=== PATIENT | female | born 1990 | race Caucasian/White ===

== ENCOUNTER → 2018-09-25 | Outpatient (CLI) | payer BC ==
[~2018-09-25] MED LIST: IBUP800 PO; Omeprazole20 M1 PO; TUMS500 MG PO; Verotin-Gr Cap1 EACH PO
== END | disposition home or self-care (01) ==
LOC: LAB 09:31 → LAB SHORT 09:31
DX: Z34.80 Encounter for supervision of other normal pregnancy, unspecified trimester (principal)
CPT/HCPCS: 87081; 87653

== ENCOUNTER 2018-10-23 06:04 | Inpatient (IN) | payer OTHER, BC ==
[~2018-10-23] VITALS: Ht 167.6 cm; Wt 88.6 kg
[2018-10-23 06:30] LABS: Source, Urine Clean Catch
[2018-10-23 06:32] LABS: Bilirubin, Urine Neg (Neg); Blood, Urine 1+ (Neg); Glucose Qualitative, Urine Neg (Neg); Ketones, Urine Neg (Neg); Leukocyte Esterase, Urine Neg (Neg); Nitrite, Urine Neg (Neg); Protein, Urine Neg (Neg); Specific Gravity, Urine 1.025 (1.003-1.022); Urobilinogen, Urine NORM (Normal)
[2018-10-23 06:33] LABS: Appearance, Urine Clear (Clear); Color, Urine Yellow (P-Yellow)
[2018-10-23 06:39] LABS: Bacteria Mod /hpf; Red Blood Cells, Urine 0-2 /hpf (0-2); Squamous Epithelial Cells Many /hpf (Few); White Blood Cells, Urine Not Seen /hpf (0-5)
[2018-10-23 07:38] LABS: BASOPHILS ABSOLUTE AUTO 0.03 K/mm3 (0.00-0.23); BASOPHILS PERCENT AUTO 0 % (0-2); EOSINOPHILS ABSOLUTE AUTO 0.02 K/mm3 (0.00-0.68); EOSINOPHILS PERCENT AUTO 0 % (0-6); Hematocrit 33.8 % (33.0-51.0); Hemoglobin 10.6 g/dL (11.5-16.0); IMMATURE GRAN ABSOLUTE AUTO 0.06 K/mm3 (0.00-0.10); IMMATURE GRAN PERCENT AUTO 1 % (0-1); LYMPHOCYTES ABSOLUTE AUTO 1.75 K/mm3 (0.84-5.20); LYMPHOCYTES PERCENT AUTO 15 % (21-46); MONOCYTES ABSOLUTE AUTO 0.86 K/mm3 (0.16-1.47); MONOCYTES PERCENT AUTO 8 % (4-13); Mean Corpuscular HGB 25.2 pg (26.0-34.0); Mean Corpuscular HGB Conc 31.4 g/dL (31.5-36.5); Mean Corpuscular Volume 81 fL (80-100); Mean Platelet Volume 11.5 fL (9.1-12.4); NEUTROPHILS ABSOLUTE AUTO 8.71 K/mm3 (1.96-9.15); NEUTROPHILS PERCENT AUTO 76 % (41-73); Platelet Count 190 K/mm3 (150-400); RDW Coefficient Variation 14.6 % (11.7-14.2); RDW Standard Deviation 42.4 fL (35.1-46.3); White Blood Cell Count 11.43 K/mm3 (4.00-11.30)
--- NOTE | 2018-10-23 16:29 | NUR ---
SNS AND SHIELD BROUGHT IN TO PT'S ROOM. PT EDUCATED ON HOW TO USE AND CLEAN. NB APPEARS TO BE DOING WELL WITH THE SETUP.
--- NOTE | 2018-10-23 21:31 | NUR ---
ASSIST MOM HAS SHORT SHANKED NIPPLES THAT ARE RETRACTED AT BASSES AND HAS BEEN HAVING DIFFICULTY LATCHING. BABY SLEEPING AT THIS TIME AND NOT INTRESTED IN . DEMONSTRATED CHEST TO CHEST LAID BACK POSTION. ED DONE. MOM ENCOURAGED TO CALL FOR ASSIST WHEN BABY WAKES. DEMONSTRAED SHIELD WHICH WAS IN THE ROOM SHE MAY NEED IT WHEN HER MILK COMES IN AND BREASTS GET HARDER.NEW BEGINNINGS BOOK AND BOOK DISCUSSED.
[2018-10-24 05:47] LABS: Hematocrit 28.1 % (33.0-51.0); Hemoglobin 8.7 g/dL (11.5-16.0); Mean Corpuscular HGB 25.1 pg (26.0-34.0); Mean Corpuscular Volume 81 fL (80-100); Mean Platelet Volume 11.4 fL (9.1-12.4); Platelet Count 137 K/mm3 (150-400); RDW Coefficient Variation 14.7 % (11.7-14.2); RDW Standard Deviation 42.9 fL (35.1-46.3); Red Blood Cell Count 3.46 M/mm3 (3.80-5.20); White Blood Cell Count 9.82 K/mm3 (4.00-11.30)
--- NOTE | 2018-10-24 16:53 | NUR ---
CONSULT. BABY IS NOW 24 HOURS OLD AND STARTING TO SELF WAKEN SOME FOR FEEDINGS. NIPPLES ARE VERY SHORT SHANKED, MINIMAL FIRMING WITH STIMULI. ONLY BF ABOUT 1 WEEK WITH FIRST CHILD AND DOES NOT REMEMBER GETTING ENGORGED AND HE DID NOT LATCH WELL. THIS BABY DOES COORDINATE SUCK ON A FINGER AFTER THE POSTERIOR TONGUE IS PRESSED DOWN. INSTRUCT/DEMO HOW TO DO TUG OF WAR WITH BABY TO HELP COORDINATE SUCK AND IMPROVE SUCTION FOR LATCHING. BABY IS NOT TRIGGERING TO TRY AND SUCK WHEN PRESENTED WITH NIPPLE ON HIS LIP. INITIALLY CRIES WITH SHIELD, THEN DID LATCH AND BEGIN SUCKLING, NARROW LATCH AND RESISTANT TO WIDENING. LEFT A COMPRESSION STRIP. INSTRUCT/DEMO USE OF SHIELD, WIDENING HIS LATCH ON MARIA A SHIELD, AND CLEANING SHIELD. INSTRUCT IN CHANGES TO EXPECT DURING THE FIRST WEEK WITH BABY AND WITH FEEDINGS AND REFERRED TO BF BROCHURE AND PAGE 18 OF BF BOOKLET FOR PHOTOS AND INFORMATION. QUESTIONS ANSWERED. INSTRUCT/DEMO SELF EBM AND BARELY A DROP WAS EXPRESSED. HISTORY OF LOW PRODUCTION. INSTRUCT TO TRY COORDINATING HIS SUCK BEFORE PUTTING TO BREAST, RATHER THAN CONTINUEING TO USE FORMULA VIA SNS TO STIMULATE HIS SUCKING REFLEX. MOM IS LOVING WITH BABY.
--- NOTE | 2018-10-25 00:34 | NUR ---
GAVE REPORT TO SMOOTH ALANIZ. SMOOTH TO ASSUME PATIENT CARE AT THIS TIME.
--- NOTE | 2018-10-25 07:30 | NUR ---
BREAKFAST TAKEN IN ROOM, PT SLEEPING, NB AT NURSES STATION SLEEPING.
--- NOTE | 2018-10-25 09:30 | NUR ---
IN TO ROOM WITH NB, MOM AWAKE NOW. WILL DO ASSESMENT & THEN ATTEMPT FEEDING. MOM STATES FEEDING HAS BEEN HARD, WILL HAVE LACATION IN ROOM THIS AM AND THEN RN. MOM HAS A DC ORDER. RX FOR COLACE AND IRON GIVEN.
--- NOTE | 2018-10-25 10:03 | NUR ---
CONSULT FOLLOW UP. BABY IS STILL NOT COORDINATING SUCK VERY WELL AND IS PUTTING MINIMAL EFFORT INTO SUCKING. JAUNDICE IS INCREASING AND WT LOSS IS 9%. INSTRUCT TO MOM THE IMPORTANCE OF INCREASING THE INTAKE FOR BABY, EVERY FEEDING. MOM IS ABLE TO SELF EBM TODAY, SMALL DROPS, BETTER THAN YESTERDAY. SHE IS NOT VERY ASSERTIVE WITH PUTTING BABY TO BREAST, DEMO HOW TO STIMULATE BABY MORE TO HELP HER WAKEN AND START SUCKING, AND BABY IS TO EAT Q2-3 HOURS NOW, WAKE HER FOR FEEDINGS IF SHE DOESN'T WAKEN HERSELF. NOW AT 4 HOURS SINCE LAST FEEDING. MOM ABLE TO APPLY SHIELD WELL, POSITIONS BABY WITH HEAD A LITTLE FORWARD, REINSTRUCT HAND POSITION TO HELP BABY WIDEN LATCH BETTER WITH CHIN MORE TO BREAST. 20CC OF FORMULA VIA SYRINGE/FEEDING TUBE INTO SHIELD, NEEDED TO INJECT SUPPLEMENT BABY WAS NOT ACTIVELY SUCKING, WOULD SUCK ENOUGH TO SWALLOW. SHE WAS ASLEEP WHEN 20CC WERE DONE. DID NOT MOVE BREAST TISSUE WITH SUCK STRENGTH. MOM PLANS HOME TODAY, TO START PUMPING FOR 10-15 MINUTES AFTER EACH BF SESSION TO BRING SUPPLY IN, GIVE SUPPLEMENT OF 20CC QF TODAY, INCREASE TO 30CC QF TOMORROW IF MILK NOT IN YET. IF MILK IN AND SHE IS PUMPING ENOUGH, GIVE EBM RATHER THAN FORMULA IN SUPPLEMENT. WHEN SUCKING INCREASES THEN WILL START DECREASING SUPPLEMENT. IF MILK DOES NOT COME IN WELL, INCREASE AMOUNT OF SUPPLEMENT BY 10CC/DAY, EACH DAY. MOM AND FRIEND BOTH LISTENING AND AGREE. HAS F/U SCHEDULED IN CLINIC IN 2 DAYS.
[2018-10-25] MEDS ORDERED: DOCU100 PO (15:38)
--- NOTE | 2018-10-25 15:49 | NUR ---
BANDS MATCHED, ALL DC TEACHING DONE, ALL QUESTIONS ANSWERED. GAVE MOM 2 30CC SYRINGES AND ANOTHER FEEDING TUBE FOR SUPPLEMENTING AT THE BR. INSTRUCTED TO CONT TO SUPPLEMENT UNTIL SUNDAY WHEN SEEN BY RN.
--- NOTE | 2018-10-25 16:30 | NUR ---
DC HOME WITH NB.
== END 2018-10-25 16:24 | disposition home or self-care (01) | DRG 807 ==
LOC: OBS 06:04 → BC 06:10 → OBS 06:46 → BC 06:48
PROVIDERS: Obstetrics & Gynecology; ADMIT Advanced Practice Midwife
PROC: 10E0XZZ Delivery of Products of Conception, External Approach (ICD-10-PCS; principal; 2018-10-23)
PROC: 0HQ9XZZ Repair Perineum Skin, External Approach (ICD-10-PCS; 2018-10-23)
PROC: 10907ZC Drainage of Amniotic Fluid, Therapeutic from Products of Conception, Via Natural or Artificial Opening (ICD-10-PCS; 2018-10-23)
DX: O48.0 Post-term pregnancy (principal); Z37.0 Single live birth; O70.0 First degree perineal laceration during delivery; Z3A.40 40 weeks gestation of pregnancy
CPT/HCPCS: 36415; 81001; 85025; 85027; J1885; J2590; J3010; J7120

== ENCOUNTER → 2020-03-09 | Outpatient (CLI) | payer OTHER ==
[~2020-03-09] MED LIST changes: +DOCU100 PO
[2020-03-10 15:09] LABS: HPV 16 Negative (Negative); HPV 18 Negative (Negative); HPV OTHER HR TYPES Negative (Negative)
== END | disposition home or self-care (01) ==
LOC: LAB SHORT 15:14 → LAB 15:14
PROVIDERS: Advanced Practice Midwife
DX: Z12.4 Encounter for screening for malignant neoplasm of cervix (principal)
CPT/HCPCS: 87624; G0123

== ENCOUNTER 2021-12-19 01:08 | Emergency (ER) | payer OTHER ==
[~2021-12-19] VITALS: Ht 170.2 cm; Wt 83.0 kg
[~2021-12-19 01:08] MED LIST changes: +AMOCLA875 PO; +ETONOGESTREL-E1 EAC1 VAG; +IMIP10 PO; +IMITREX100 MG PO; +LEVOCETIRIZINE D5 MG PO; +OXYC10TA19 PO; +PRENATAL TABLE1 EAC2 PO; -Verotin-Gr Cap1 EACH PO; +ZOLOFT100 M7 PO
[2021-12-19 01:26] LABS: Source, Urine Clean Catch
[2021-12-19 01:28] LABS: Appearance, Urine Hazy (Clear); Bilirubin, Urine Neg (Neg); Blood, Urine 5+ (Neg); Color, Urine Yellow (P-Yellow); Glucose Qualitative, Urine Neg (Neg); Ketones, Urine Neg (Neg); Leukocyte Esterase, Urine 1+ (Neg); Nitrite, Urine Neg (Neg); Protein, Urine 2+ (Neg); Urobilinogen, Urine NORM (Normal)
[2021-12-19 01:35] LABS: Red Blood Cells, Urine 50-100 /hpf (0-2)
[2021-12-19 01:36] LABS: Bacteria Many /hpf; Calcium Oxalate Crystals Few /hpf; Mucus Light (0-Heavy); Squamous Epithelial Cells Few /hpf (Few)
[2021-12-19 02:25] LABS: BASOPHILS ABSOLUTE AUTO 0.04 K/mm3 (0.00-0.23); BASOPHILS PERCENT AUTO 0 % (0-2); EOSINOPHILS ABSOLUTE AUTO 0.04 K/mm3 (0.00-0.68); EOSINOPHILS PERCENT AUTO 0 % (0-6); Hematocrit 43.1 % (33.0-51.0); Hemoglobin 14.4 g/dL (11.5-16.0); IMMATURE GRAN ABSOLUTE AUTO 0.07 K/mm3 (0.00-0.10); IMMATURE GRAN PERCENT AUTO 1 % (0-1); LYMPHOCYTES ABSOLUTE AUTO 1.59 K/mm3 (0.84-5.20); LYMPHOCYTES PERCENT AUTO 11 % (21-46); MONOCYTES ABSOLUTE AUTO 0.92 K/mm3 (0.16-1.47); MONOCYTES PERCENT AUTO 6 % (4-13); Mean Corpuscular HGB 28.5 pg (26.0-34.0); Mean Corpuscular HGB Conc 33.4 g/dL (31.5-36.5); Mean Corpuscular Volume 85 fL (80-100); Mean Platelet Volume 10.2 fL (9.1-12.4); NEUTROPHILS ABSOLUTE AUTO 11.83 K/mm3 (1.96-9.15); NEUTROPHILS PERCENT AUTO 82 % (41-73); Platelet Count 300 K/mm3 (150-400); RDW Coefficient Variation 13.4 % (11.7-14.2); RDW Standard Deviation 41.2 fL (35.1-46.3); Red Blood Cell Count 5.06 M/mm3 (3.80-5.20); White Blood Cell Count 14.49 K/mm3 (4.00-11.30)
[2021-12-19 02:42] LABS: Anion Gap 9 mmol/L (6-16); Blood Urea Nitrogen 11 mg/dL (8-24); Bun/Creatinine Ratio 15.6 (12.0-20.0); CO2, Blood 26 mmol/L (21-32); Calcium, Blood 9.6 mg/dL (8.5-10.1); Chloride, Blood 105 mmol/L (98-108); Creatinine, Blood 0.71 mg/dL (0.40-1.00); Glomerular Filtration Rate >60 (60-); Glucose, Blood 128 mg/dL (70-99); Potassium, Blood 3.8 mmol/L (3.5-5.5); Sodium, Blood 140 mmol/L (136-145)
[2021-12-19] MEDS ORDERED: CEPH500 PO (03:20)
[2021-12-19] MEDS ORDERED: TAMS.4ER PO (03:20)
[2021-12-19] MEDS ORDERED: ONDA4ODT MM (03:20)
== END 2021-12-19 03:37 | disposition home or self-care (01) ==
LOC: ER 01:08
PROVIDERS: Student in an Organized Health Care Education/Training Program
DX: N20.2 Calculus of kidney with calculus of ureter (principal)
CPT/HCPCS: 36415; 74176; 80048; 81001; 85025; 87086; 96374; 96375; 99284-25; A9270; J1885; J2405; J7030

== ENCOUNTER 2025-04-14 10:49 | Day surgery (SDC) | payer OTHER ==
[~2025-04-14] VITALS: Ht 167.6 cm; Wt 83.0 kg
[~2025-04-14 10:49] MED LIST changes: +AMPDEX5; +CEFD300 PO; +CEPH500 PO; +Ibuprofen600 MG PO; +NUVARING VAGIN1 EAC1; +ONDA4ODT MM; +Percocet 5-3251 EACH PO; +TAMS.4ER PO
[2025-04-14] MEDS ORDERED: NORELGESTROM-E1 EACH TD (11:26)
[2025-04-14] MEDS ORDERED: MONT10T PO (11:27)
[2025-04-14] MEDS ORDERED: MIRALAX17 GM PO (11:27)
[2025-04-14 12:54] VITALS: BP 103/80
== END 2025-04-14 12:54 | disposition home or self-care (01) ==
LOC: ORSCSDS 10:49
PROVIDERS: Specialist
PROC: 0DJD8ZZ Inspection of Lower Intestinal Tract, Via Natural or Artificial Opening Endoscopic (ICD-10-PCS; principal; 2025-04-14 12:15)
DX: R10.32 Left lower quadrant pain (principal); K59.00 Constipation, unspecified; K64.8 Other hemorrhoids; Z79.899 Other long term (current) drug therapy
CPT/HCPCS: J2704; J7120